=== PATIENT | male | born 1975 | race Caucasian/White ===

== ENCOUNTER → 2020-07-31 11:13 | Outpatient (CLI) | payer BC, SELFPAY ==
--- NOTE | ~2020-07-31 | XR_ITS ---
XR foot RT min 3V DATE: 07/31/2020 12:37 INDICATION: Right foot pain TECHNIQUE: 4 views COMPARISON: None FINDINGS: There is mild osteoarthritis at the first metatarsophalangeal joint. Minimal posterior calcaneal enthesopathy. No fracture or dislocation, periosteal reaction or bone destruction. IMPRESSION: Mild osteoarthritis at first metatarsophalangeal joint Minimal posterior calcaneal enthesopathy Reviewed, dictated and finalized at location A.
--- NOTE | ~2020-07-31 | XR_ITS ---
XR ankle RT 2V DATE: 07/31/2020 12:37 INDICATION: Right ankle pain TECHNIQUE: 2 views COMPARISON: None FINDINGS: There is mild lateral soft tissue swelling. No fracture or dislocation of the ankle or dis ruption of the ankle mortise. There is ankle joint effusion. Mild posterior calcaneal enthesopathy. IMPRESSION: Ankle joint effusion Mild lateral soft tissue swelling Posterior calcaneal enthesopathy Reviewed, dictated and finalized at location A.
== END ==
PROVIDERS: PCP Internal Medicine; Visit Provider Internal Medicine
DX: M25.471 Effusion, right ankle (principal); M79.89 Other specified soft tissue disorders; M77.31 Calcaneal spur, right foot
CPT/HCPCS: 73600; 73630

== ENCOUNTER → 2020-08-12 09:22 | Outpatient (CLI) | payer BC, SELFPAY ==
--- NOTE | ~2020-08-12 | MR_ITS ---
EXAMINATION: MR ankle RT wo con DATE: 08/12/2020 10:02 INDICATION: Right ankle pain and weakness TECHNIQUE: Magnetic resonance imaging (MRI) of the right ankle was performed without intravenous cont rast. Sequences included sagittal, coronal, and axial proton-density weighted fast spin echo without and with fat saturation. COMPARISON: None. FINDINGS: Medial ankle ligaments: Deep and superficial deltoid ligaments as well as the spring ligament are normal. Lateral ankle ligaments: The anterior and posterior inferior tibiofibular ligaments are normal. The anterior talofibular, calc aneofibular and posterior talofibular ligaments are normal. Tendons: Minimal insertional Achilles tendinosis. Small amounts of fluid consistent with mild retrocalcaneal a nd retro-Achilles bursitis.. Small enthesophyte at the calcaneal insertion of the Achilles tendon wit h prominent underlying marrow edema. The peroneus longus and brevis tendons are normal. The tibialis anterior and extensor hallucis longus and extensor digitorum longus tendons are normal. The tibialis posterior, flexor digitorum longus and flexor hallucis longus tendons are normal. Plantar fascia: Plantar aponeurosis is normal. Bones/other: Bone alignment is normal. There is an irregular cortical contour along the medial margin of the talar dome with a shallow concavity which extends 12 mm AP and approximately 6 mm medial to lateral. There is minimal underlying marrow edema and findings would be consistent with a chronically collapsed ost eochondral lesion. There is a 6 x 2 x 3 mm low signal intensity lesion centered within the concavity which could represent a residual lucency fragment in situ or potentially vacuum phenomena at this loc ation. Bone alignment is normal. As previously noted there is marrow edema at the posterior No fractu re. Disc spaces appear relatively preserved. Fluid: Small tibiotalar joint effusion in the posterior and anterolateral recesses of the joint. No tenosyno vitis or other abnormal fluid collections. IMPRESSION: 1. Mild Achilles insertional tendinosis with mild retrocalcaneal or retro-Achilles bursitis and likel y associated reactive marrow edema at the posterior calcaneus. 2. 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 Reviewed, dictated and finalized at location A. IMPRESSION: 1. Mild Achilles insertional tendinosis with mild retrocalcaneal or retro-Achil les bursitis and likely associated reactive marrow edema at the posterior calca neus. 2. 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
== END ==
PROVIDERS: PCP Internal Medicine; Visit Provider Orthopaedic Surgery
DX: M25.571 Pain in right ankle and joints of right foot (principal)
CPT/HCPCS: 73721